=== PATIENT | female | born 1995 | race Caucasian/White ===

== ENCOUNTER 2018-05-29 16:08 | Emergency (ER) | payer MEDICAID ==
[2018-05-29 17:26] LABS: URINE BLOOD (Dip) POC 2+ (NEGATIVE); URINE GLUCOSE (Dip) POC Negative (NEGATIVE); URINE KETONES (Dip) POC Negative (NEGATIVE); URINE LEUKOCYTE EST (Dip) POC 2+ (NEGATIVE); URINE NITRITE (Dip) POC Positive (NEGATIVE); URINE TOTAL PROTEIN POC Negative (NEGATIVE)
[2018-05-29] MEDS: PHENAZOPYRIDINE 100 MG TAB PO (19:00)
[2018-05-29] MEDS: CEPHALEXIN 500 MG CAP PO (19:00)
== END 2018-05-29 19:02 | disposition home or self-care (01) ==
LOC: FTE 16:08
DX: R30.0 Dysuria (principal)
CPT/HCPCS: 81003; 81025; 99283